=== PATIENT | female | born 1940 | race Caucasian/White ===

== ENCOUNTER 2019-08-27 09:56 | Outpatient (CLI) | payer MEDICARE ==
--- NOTE | 2019-08-27 11:17 | RAD ---
THORACIC SPINE SERIES FOUR VIEWS: HISTORY: Back and right leg pain. FINDINGS: The vertebral bodies are normal in height. There are degenerative changes along the course of the spi ne with mild disk narrowing at L1-L2 and at L2-L3, more pronounced disk narrowing at L3-L4 and more s evere narrowing at the L4-L5 and L5-S1 levels. Minimal spondylolisthesis of L4 on L5 is present. Vijay ed degenerative facet changes are present. Pedicles are intact. Postoperative changes which appear to be related to previous cholecystectomy. On the flexion and extension views there does not appear to be a significant change. IMPRESSION: Marked arthritic changes of the spine. POS: TPC
--- NOTE | 2019-08-27 11:49 | MRI ---
MRI LUMBAR SPINE PERFORMED WITHOUT CONTRAST ENHANCEMENT: Date: 08/27/19 HISTORY: Back and right leg pain. FINDINGS: The vertebral bodies are normal in height. There are generalized disc desiccation changes. There is a spondylolisthesis of L4 on L5 of approximately 6.0 mm. No significant periaortic adenopathy and the visualized portions of the kidneys appear unremarkable. T11-12: No significant canal or foraminal stenosis. T12-L1: No canal or foraminal stenosis. L1-2: A disc bulge with facet and ligamentous hypertrophic changes are seen. No canal stenosis. Ther e is some mild bilateral foraminal narrowing. L2-3: Degenerative facet changes with some borderline canal narrowing. No foraminal stenosis. L3-4: Moderate disc bulge is seen at this level with a mild to moderate degree of canal stenosis wit h facet and ligamentous hypertrophic changes and moderate bilateral foraminal narrowing L4-5: Canal shows a mild to moderate degree of narrowing with degenerative facet changes, disc bulge , and spondylolisthesis. There is some mild bilateral foraminal narrowing. L5-S1: No central canal stenosis. Degenerative facet changes are present with moderate bilateral for aminal narrowing, worse on the left. IMPRESSION: Areas of canal and foraminal stenosis as discussed above. POS: TPC
== END 2019-08-27 09:57 | disposition home or self-care (01) ==
LOC: TBSIIMAG 09:56
PROVIDERS: ATTEND Physician Assistant Surgical
DX: M54.16 Radiculopathy, lumbar region (principal); M54.5 Low back pain; R20.2 Paresthesia of skin; M46.94 Unspecified inflammatory spondylopathy, thoracic region; M48.061 Spinal stenosis, lumbar region without neurogenic claudication; M48.07 Spinal stenosis, lumbosacral region
CPT/HCPCS: 72110; 72148

== ENCOUNTER 2019-11-07 13:28 | Outpatient (CLI) | payer MEDICARE ==
--- NOTE | 2019-11-07 15:02 | MRI ---
MRI CERVICAL SPINE WITHOUT IV CONTRAST: HISTORY: Neck pain and bilateral shoulder blade pain. Symptoms have been present for a few months. COMPARISON: None. FINDINGS: There is mild volume loss involving the limited visualized cerebellum. The craniocervical junction is within normal limits. There is mild nonspecific heterogeneity of the bone marrow with degenerative changes noted in the cer vical spine. C2-C3: No significant disk bulge or disk herniation is seen. Mild facet degenerative changes are note d. Minimal left neural foraminal narrowing is present. The right neural foramen and central canal are patent. C3-C4: There are prominent facet hypertrophic changes on the left. This results in mild left sided ne ural foraminal narrowing. The central spinal canal and right neural foramen are patent. There is no s ignificant disk bulge or disk herniation. C4-C5: There is loss of intervertebral disk height. There is a broad-based disk osteophyte complex an d suggestion of uncinate process hypertrophy. There is mild right sided neural foraminal narrowing. T he left neural foramen is patent. There is slight effacement of the ventral subarachnoid space. C5-C6: There is loss of intervertebral disk height. There is a broad-based disk osteophyte complex, g reater in the right paracentral location. This results in moderate to severe bilateral neural foramin al narrowing with mild central canal narrowing. There is encroachment at the anterior aspect of the s ezio cord at this level. C6-C7: There is loss of intervertebral disk height. There is a broad-based disk osteophyte complex pr esent with mild facet degenerative changes. Findings result in moderate to severe bilateral neural fo raminal narrowing, greater on the left. There is mild central canal narrowing. C7-T1: There is a mild disk osteophyte complex present. Mild facet degenerative changes are noted. Th ere is mild right and moderate left sided neural foraminal narrowing. The central spinal canal at thi s level is patent. IMPRESSION: Multilevel degenerative changes in the cervical spine, as described above. The findings are greatest at the C5-C6 and C6-C7 levels. POS: C
--- NOTE | 2019-11-07 15:58 | RAD ---
XR Cervical Spine 4 View Min History: Cervicalgia. Scapulocalgia Comparison: Cervical spine MRI same day Findings: Moderate to severe degenerative disc space disease from C5-T1. 2 mm C5 over C6 degenerative retrolisthesis. Moderate facet arthrosis bilaterally. Moderate vascular calcifications right carotid bulb and proximal internal carotid artery. The ribs ar e intact. Lung apices are clear. Impression: Advanced degenerative changes.
== END 2019-11-07 13:29 | disposition home or self-care (01) ==
LOC: TBSIIMAG 13:28
PROVIDERS: ATTEND Surgery
DX: M89.8X1 Other specified disorders of bone, shoulder (principal); M47.812 Spondylosis without myelopathy or radiculopathy, cervical region; M47.813 Spondylosis without myelopathy or radiculopathy, cervicothoracic region
CPT/HCPCS: 72050; 72141

== ENCOUNTER 2019-11-07 15:22 | Outpatient (CLI) | payer MEDICARE | END 2019-11-07 15:23 | disposition home or self-care (01) | LOC: SCSRAD 15:22 | PROVIDERS: ATTEND Surgery | DX: M47.22 Other spondylosis with radiculopathy, cervical region (principal); M89.8X1 Other specified disorders of bone, shoulder; M48.061 Spinal stenosis, lumbar region without neurogenic claudication; M54.5 Low back pain | CPT/HCPCS: 72040; 72050; 72141 ==

== ENCOUNTER 2021-03-24 12:42 | Outpatient (CLI) | payer MEDICARE ==
[2021-03-24 15:16] LABS: Anion Gap 15 mmol/L (10-20); BUN (Urea Nitrogen) 17 mg/dL (9.8-20.1); Calc. Creatinine Clearance 0 mL/min (70-130); Calcium 10.3 mg/dL (7.8-10.44); Carbon Dioxide 27 mmol/L (23-31); Chloride 101 mmol/L (98-107); Glucose 82 mg/dL (83-110); Potassium 4.6 mmol/L (3.5-5.1); Sodium 138 mmol/L (136-145)
[2021-03-25 01:51] LABS: SARS-CoV-2 PCR by NAA Not Detected (NotDetected)
== END 2021-03-24 12:43 | disposition home or self-care (01) ==
LOC: LABBT 12:42
PROVIDERS: ATTEND Student in an Organized Health Care Education/Training Program
DX: Z01.818 Encounter for other preprocedural examination (principal); R09.81 Nasal congestion; J30.0 Vasomotor rhinitis; R09.82 Postnasal drip; J34.2 Deviated nasal septum; J34.89 Other specified disorders of nose and nasal sinuses; K58.9 Irritable bowel syndrome, unspecified; Z20.822 Contact with and (suspected) exposure to COVID-19
CPT/HCPCS: 80048; 85014; 85018; 93005; U0003; U0005; 87635; 93010

== ENCOUNTER 2021-03-29 09:14 | Day surgery (SDC) | payer MEDICARE ==
[2021-03-28 14:56] VITALS: BMI 20.7
[2021-03-29] MEDS ORDERED: AFRIN NASAL MIST 15 ML BOT ONE ×2 (11:06→11:15)
[2021-03-29] MEDS ORDERED: Lidocaine 1% w/Epinephrine 1:100K 20 ML VIAL ONE (11:15)
[2021-03-29] MEDS ORDERED: Bacitracin Zinc Ointment 30 gm TUBE ONE (11:15)
[2021-03-29] MEDS ORDERED: Fentanyl 100 MCG/2 ML VIAL ONE (11:18)
[2021-03-29] MEDS ORDERED: SUGAMMADEX SODIUM 200 MG/2 ML VIAL ONE (11:19)
[2021-03-29] MEDS ORDERED: Famotidine/PF 20 mg/2ml Vial ONE (11:19)
[2021-03-29] MEDS ORDERED: Lidocaine 1% PF 5 ML VIAL ONE (11:35)
[2021-03-29] MEDS ORDERED: PHENYLEPHRINE-NS 100 MCG/ML 10 ML SYRINGE ONE (11:35)
[2021-03-29] MEDS ORDERED: Dexamethasone 20 MG/5 ML VIAL ONE (11:35)
[2021-03-29] MEDS ORDERED: Glycopyrrolate 0.2 MG/ML 5 ML SYRINGE ONE (11:35)
[2021-03-29] MEDS ORDERED: Ondansetron PF 4 MG/2 ML Vial ONE (11:35)
[2021-03-29] MEDS ORDERED: Rocuronium Bromide 10 MG/ML (10ML VIAL) ONE (11:35)
[2021-03-29] MEDS ORDERED: PROPOFOL 200 MG/20 ML VIAL ONE (11:35)
[2021-03-29] MEDS ORDERED: HYDROcodone/Acetaminophen 5/325 mg Tablet ONE (14:28)
[2021-03-29] MEDS ORDERED: hydrALAZINE 20 MG/ML VIAL ONE (15:16)
== END 2021-03-29 15:58 | disposition home or self-care (01) ==
LOC: SDC 09:14
PROVIDERS: ATTEND Student in an Organized Health Care Education/Training Program
PROC: 09BM8ZZ Excision of Nasal Septum, Via Natural or Artificial Opening Endoscopic (ICD-10-PCS; principal; 2021-03-29)
PROC: 09BL8ZZ Excision of Nasal Turbinate, Via Natural or Artificial Opening Endoscopic (ICD-10-PCS; 2021-03-29)
PROC: 09QM8ZZ Repair Nasal Septum, Via Natural or Artificial Opening Endoscopic (ICD-10-PCS; 2021-03-29)
DX: J34.89 Other specified disorders of nose and nasal sinuses (principal); J34.2 Deviated nasal septum; J34.3 Hypertrophy of nasal turbinates; K58.9 Irritable bowel syndrome, unspecified; Z79.51 Long term (current) use of inhaled steroids; Z79.899 Other long term (current) drug therapy; Z88.6 Allergy status to analgesic agent; Z88.8 Allergy status to other drugs, medicaments and biological substances; Z91.018 Allergy to other foods
CPT/HCPCS: 30140; 30468; 30520; Q4166; C1889; J0360; J1100; J2405; J2704; J3010; S0028

== ENCOUNTER 2021-08-09 12:31 | Outpatient (CLI) | payer MEDICARE | END 2021-08-09 12:32 | disposition home or self-care (01) | LOC: TBSIIMAG 12:31 | PROVIDERS: ATTEND Surgery | DX: M47.26 Other spondylosis with radiculopathy, lumbar region (principal); S32.011A Stable burst fracture of first lumbar vertebra, initial encounter for closed fracture | CPT/HCPCS: 72148 ==

== ENCOUNTER 2021-08-15 10:42 | Outpatient (CLI) | payer MEDICARE | END 2021-08-15 10:43 | disposition home or self-care (01) | LOC: TBSIIMAG 10:42 | PROVIDERS: ATTEND Surgery | DX: S32.019A Unspecified fracture of first lumbar vertebra, initial encounter for closed fracture (principal) | CPT/HCPCS: 72100 ==

== ENCOUNTER 2021-09-20 10:58 | Outpatient (CLI) | payer MEDICARE | END 2021-09-20 10:59 | disposition home or self-care (01) | LOC: TBSIIMAG 10:58 | PROVIDERS: ATTEND Surgery | DX: S22.008D Other fracture of unspecified thoracic vertebra, subsequent encounter for fracture with routine healing (principal) | CPT/HCPCS: 72100 ==

== ENCOUNTER 2022-05-16 12:30 | Outpatient (CLI) | payer MEDICARE | END 2022-05-16 12:31 | disposition home or self-care (01) | LOC: SCSMRI 12:30 | PROVIDERS: ATTEND Anesthesiology Pain Medicine | DX: M47.812 Spondylosis without myelopathy or radiculopathy, cervical region (principal) | CPT/HCPCS: 72146 ==

== ENCOUNTER 2022-05-31 10:49 | Outpatient (CLI) | payer MEDICARE | END 2022-05-31 10:50 | disposition home or self-care (01) | LOC: TBSIIMAG 10:49 | PROVIDERS: ATTEND Anesthesiology Pain Medicine | DX: M48.02 Spinal stenosis, cervical region (principal); M50.31 Other cervical disc degeneration, high cervical region; M47.812 Spondylosis without myelopathy or radiculopathy, cervical region | CPT/HCPCS: 72141 ==

== ENCOUNTER 2022-09-07 13:42 | Emergency (ER) | payer MEDICARE ==
[~2022-09-07 13:42] MED LIST: Iopamidol-370 76% 500 ML 1 ML ONE
[2022-09-07 14:31] LABS: #Eosinphils 0.1 thou/uL (0.0-0.7); #Lymphocytes 1.5 thou/uL (1.20-3.40); #Monocytes 0.3 thou/uL (0.11-0.59); #Neutrophils 4.9 thou/uL (1.40-6.50); %Basophils 0.4 % (0.0-1.0); %Eosinophils 1.3 % (0.0-10.0); %Lymphocytes 21.8 % (21.0-51.0); %Monocytes 4.7 % (0.0-10.0); %Neutrophils 71.9 % (42.0-75.0); Hemoglobin 14.2 g/dL (12.0-16.0); Mean Corpuscular HGB CONC 32.6 g/dL (32.0-36.0); Mean Corpuscular Hemoglobin 30.4 pg (27.0-31.0); Mean Corpuscular Volume 93.2 fL (78.0-98.0); Mean Platelet Volume 7.4 fL (7.4-10.4); Platelet Count 278 thou/uL (130-400); RBC Distribution Width 13.1 % (11.5-14.5); Red Blood Cell (RBC) Count 4.67 mill/uL (4.20-5.40); White Blood Cell (WBC) Count 6.9 thou/uL (4.8-10.8)
[2022-09-07 14:39] LABS: ALT (SGPT) 11 U/L (8-55); AST (SGOT) 22 U/L (5-34); Albumin 4.1 g/dL (3.4-4.8); Alkaline Phosphatase 90 U/L (40-110); Anion Gap 13 mmol/L (10-20); BUN (Urea Nitrogen) 14 mg/dL (9.8-20.1); Bilirubin, Total 0.5 mg/dL (0.2-1.2); Calc. Creatinine Clearance 0 mL/min (70-130); Calcium 9.6 mg/dL (7.8-10.44); Carbon Dioxide 28 mmol/L (23-31); Chloride 100 mmol/L (98-107); Estimated GFR 82; Globulin 3.6 g/dL (2.4-3.5); Glucose 97 mg/dL (83-110); Lipase 71 U/L (8-78); Potassium 3.9 mmol/L (3.5-5.1); Protein, Total 7.7 g/dL (5.8-8.1); Sodium 137 mmol/L (136-145)
[2022-09-07 16:23] LABS: Bilirubin Negative (Negative); Blood, Urine Negative (Negative); Clarity Clear (Clear); Glucose, Urine (Dipstick) Normal (Negative); Ketone, Urine 10 mg/dL (Negative); Leukocyte Negative Leu/uL (Negative); Nitrite Negative (Negative); Protein, Urine (Dipstick) Negative (Neg-Trace); Urobilinogen Normal mg/dL (Less than 2)
[2022-09-07] MEDS ORDERED: Dicyclomine 20 MG/2 ML VIAL ONE (17:11)
[2022-09-07] MEDS ORDERED: Fentanyl 100 MCG/2 ML VIAL ONE (17:12)
== END 2022-09-07 18:52 | disposition home or self-care (01) ==
LOC: ERS 13:42
DX: K52.9 Noninfective gastroenteritis and colitis, unspecified (principal); J18.9 Pneumonia, unspecified organism; Z79.899 Other long term (current) drug therapy; M54.12 Radiculopathy, cervical region
CPT/HCPCS: 36415; 62321; 74177; 80053; 81003; 83690; 84484; 85025; 85652; 93005; 96372; 96374; J1040; J3010; Q9967

== ENCOUNTER 2022-10-09 20:47 | Inpatient (IN) | payer MEDICARE ==
[2022-10-09] MEDS ORDERED: Nitroglycerin 2% Ointment 1 INCH/1 GM Packet ONE (21:09)
[2022-10-09] MEDS ORDERED: Morphine 4 MG/ML VIAL ONE (21:09)
[2022-10-09 21:26] LABS: #Basophils 0.1 thou/uL (0.0-0.2); #Eosinphils 0.1 thou/uL (0.0-0.7); #Lymphocytes 2.4 thou/uL (1.20-3.40); #Monocytes 0.4 thou/uL (0.11-0.59); #Neutrophils 2.4 thou/uL (1.40-6.50); %Eosinophils 2.5 % (0.0-10.0); %Lymphocytes 44.1 % (21.0-51.0); %Monocytes 7.7 % (0.0-10.0); %Neutrophils 44.8 % (42.0-75.0); Hemoglobin 11.9 g/dL (12.0-16.0); Mean Corpuscular HGB CONC 33.2 g/dL (32.0-36.0); Mean Corpuscular Volume 93.3 fl (78.0-98.0); Mean Platelet Volume 7.4 fL (7.4-10.4); Platelet Count 257 10x3/uL (130-400); Red Blood Cell (RBC) Count 3.85 mill/uL (4.20-5.40); White Blood Cell (WBC) Count 5.3 10x3/uL (4.8-10.8)
[2022-10-09 21:47] LABS: Carbon Dioxide 24 mmol/L (23-31); Chloride 101 mmol/L (98-107); Potassium 3.9 mmol/L (3.5-5.1); Sodium 133 mmol/L (136-145)
[2022-10-09 21:48] LABS: ALT (SGPT) 11 U/L (8-55); AST (SGOT) 21 U/L (5-34); Albumin 3.8 g/dL (3.4-4.8); Alkaline Phosphatase 77 U/L (40-110); Anion Gap 12 mmol/L (10-20); BUN (Urea Nitrogen) 11 mg/dL (9.8-20.1); Bilirubin, Total 0.3 mg/dL (0.2-1.2); Calc. Creatinine Clearance 0 mL/min (70-130); Calcium 8.8 mg/dL (7.8-10.44); Estimated GFR 80; Globulin 2.8 g/dL (2.4-3.5); Glucose 89 mg/dL (83-110); Protein, Total 6.6 g/dL (5.8-8.1)
[2022-10-09] MEDS ORDERED: cefTRIAXone\\ROCEPHIN 1 GM VIAL ONE (22:21)
[2022-10-09] MEDS ORDERED: traMADol HCl 50 MG TAB PO PRN (23:32)
[2022-10-09] MEDS ORDERED: Ondansetron PF 4 MG/2 ML Vial IVP PRN (23:32)
[2022-10-09] MEDS ORDERED: Acetaminophen 325 MG TAB PO PRN (23:32)
[2022-10-09] MEDS ORDERED: Ondansetron ODT 4 MG TAB PO PRN (23:32)
[2022-10-09] MEDS ORDERED: Azithromycin 500 MG VIAL ONE (23:40)
[2022-10-09 23:57] LABS: Bacteria/HPF 1+ HPF (None Seen); Bilirubin Negative (Negative); Blood, Urine Negative (Negative); Clarity Clear (Clear); Glucose, Urine (Dipstick) Normal (Negative); Ketone, Urine Negative (Negative); Leukocyte 75 Leu/uL (Negative); Nitrite 1+ (Negative); Protein, Urine (Dipstick) Negative (Neg-Trace); RBC/HPF 0-3 HPF (0-3); Specific Gravity, Urine 1.008 (1.002-1.036); Squamous Epithelial None Seen HPF (0-3); Urobilinogen Normal mg/dL (Less than 2); pH, Urine 6.5 (5.0-9.0)
[2022-10-10 00:40] VITALS: BMI 18.6
[2022-10-10] MEDS: HYDROcodone/Acetaminophen 7.5/325 mg Tablet PO PRN ×2 (01:19→08:23)
[2022-10-10 01:46] LABS: SARS-CoV-2 NAA Rapid Test Not Detected (NotDetected)
[2022-10-10] MEDS ORDERED: Promethazine HCl 12.5 MG in Sodium Chloride 0.9% 50 ML IVPB PRN (01:46)
[2022-10-10 06:13] LABS: #Eosinphils 0.1 thou/uL (0.0-0.7); #Lymphocytes 1.8 thou/uL (1.20-3.40); #Monocytes 0.7 thou/uL (0.11-0.59); #Neutrophils 2.9 thou/uL (1.40-6.50); %Basophils 0.8 % (0.0-1.0); %Eosinophils 2.3 % (0.0-10.0); %Lymphocytes 32.3 % (21.0-51.0); %Monocytes 11.7 % (0.0-10.0); Hemoglobin 12.1 g/dL (12.0-16.0); Mean Corpuscular HGB CONC 32.6 g/dL (32.0-36.0); Mean Corpuscular Hemoglobin 30.6 pg (27.0-31.0); Mean Corpuscular Volume 93.7 fl (78.0-98.0); Mean Platelet Volume 7.6 fL (7.4-10.4); Platelet Count 248 10x3/uL (130-400); RBC Distribution Width 13.1 % (11.5-14.5); Red Blood Cell (RBC) Count 3.95 mill/uL (4.20-5.40); White Blood Cell (WBC) Count 5.5 10x3/uL (4.8-10.8)
[2022-10-10 06:37] LABS: Anion Gap 9 mmol/L (10-20); BUN (Urea Nitrogen) 8 mg/dL (9.8-20.1); Calc. Creatinine Clearance 51 mL/min (70-130); Calcium 8.6 mg/dL (7.8-10.44); Carbon Dioxide 28 mmol/L (23-31); Chloride 104 mmol/L (98-107); Estimated GFR 82; Glucose 88 mg/dL (83-110); Potassium 4.1 mmol/L (3.5-5.1); Sodium 137 mmol/L (136-145)
[2022-10-10] MEDS: Dicyclomine 20 MG TAB PO SCH ×3 (08:23→20:02)
[2022-10-10] MEDS: Citalopram 10 MG TAB PO SCH (08:23)
[2022-10-10] MEDS: Lisinopril 20 MG TAB PO SCH (08:23)
[2022-10-10] MEDS ORDERED: FLU VACC QS2022-23(65YR UP)/PF 240 MCG/0.7 ML SYRINGE IM ONE (09:00)
[2022-10-10] MEDS: traMADol HCl 50 MG TAB PO PRN ×2 (13:56→20:02)
[2022-10-10] MEDS ORDERED: Polyethylene Glycol 3350 17 GM Packet PO SCH (19:15)
[2022-10-10] MEDS ORDERED: cefTRIAXone\\ROCEPHIN 1 GM in Sodium Chloride 0.9% 100 ML IVPB SCH (22:00)
[2022-10-10] MEDS ORDERED: Azithromycin 500 MG in Sodium Chloride 0.9% 250 ML 250 ML IVPB SCH (23:00)
[2022-10-11] MEDS: traMADol HCl 50 MG TAB PO PRN (01:34)
[2022-10-11] MEDS ORDERED: HYDROcodone/Acetaminophen 7.5/325 mg Tablet PO SCH (05:15)
[2022-10-11 06:01] LABS: #Eosinphils 0.1 thou/uL (0.0-0.7); #Lymphocytes 1.7 thou/uL (1.20-3.40); #Monocytes 0.5 thou/uL (0.11-0.59); #Neutrophils 4.5 thou/uL (1.40-6.50); %Basophils 0.1 % (0.0-1.0); %Eosinophils 1.1 % (0.0-10.0); %Monocytes 6.7 % (0.0-10.0); %Neutrophils 67.1 % (42.0-75.0); Hemoglobin 12.4 g/dL (12.0-16.0); Mean Corpuscular HGB CONC 32.9 g/dL (32.0-36.0); Mean Corpuscular Hemoglobin 30.4 pg (27.0-31.0); Mean Corpuscular Volume 92.4 fl (78.0-98.0); Mean Platelet Volume 7.4 fL (7.4-10.4); Platelet Count 272 10x3/uL (130-400); RBC Distribution Width 13.1 % (11.5-14.5); Red Blood Cell (RBC) Count 4.08 mill/uL (4.20-5.40); White Blood Cell (WBC) Count 6.7 10x3/uL (4.8-10.8)
[2022-10-11 06:26] LABS: Anion Gap 11 mmol/L (10-20); BUN (Urea Nitrogen) 6 mg/dL (9.8-20.1); Calc. Creatinine Clearance 53 mL/min (70-130); Calcium 8.5 mg/dL (7.8-10.44); Carbon Dioxide 25 mmol/L (23-31); Chloride 100 mmol/L (98-107); Estimated GFR 86; Glucose 93 mg/dL (83-110); Potassium 3.8 mmol/L (3.5-5.1); Sodium 132 mmol/L (136-145)
[2022-10-11] MEDS: Citalopram 10 MG TAB PO SCH (08:23)
[2022-10-11] MEDS: Lisinopril 20 MG TAB PO SCH (08:23)
[2022-10-11] MEDS: Dicyclomine 20 MG TAB PO SCH (08:23)
[2022-10-11 08:53] VITALS: BP 144/67; TEMP 97.4
[2022-10-14 14:37] LABS: QuantiFERON-TB Gold Plus Negative (Negative)
== END 2022-10-11 14:47 | disposition home or self-care (01) | DRG 178 ==
LOC: ERS 20:47 → T4-A 22:57 → OBSVTOIN 10-10 10:17 → T4-A 10-10 10:40
PROVIDERS: ADMIT Physician Assistant; ATTEND Internal Medicine
DX: A31.0 Pulmonary mycobacterial infection (principal); Z68.1 Body mass index [BMI] 19.9 or less, adult; J18.9 Pneumonia, unspecified organism; Z66 Do not resuscitate; K58.9 Irritable bowel syndrome, unspecified; I10 Essential (primary) hypertension; F41.9 Anxiety disorder, unspecified; Z88.2 Allergy status to sulfonamides; Z88.8 Allergy status to other drugs, medicaments and biological substances; Z79.899 Other long term (current) drug therapy; Z90.09 Acquired absence of other part of head and neck; Z90.49 Acquired absence of other specified parts of digestive tract; R63.4 Abnormal weight loss
CPT/HCPCS: 36415; 71045; 71250; 74177; 80048; 80053; 81003; 81015; 83605; 83880; 84484; 85025; 86480; 87040; 87116; 87206; 93005; J0456; J0696; J2270; J3490; J7050; Q9967

== ENCOUNTER 2022-12-22 12:36 | Outpatient (CLI) | payer MEDICARE | END 2022-12-22 12:37 | disposition home or self-care (01) | LOC: BICCT 12:36 | PROVIDERS: ATTEND Internal Medicine Critical Care Medicine | DX: A31.0 Pulmonary mycobacterial infection (principal); R91.8 Other nonspecific abnormal finding of lung field; J98.11 Atelectasis; J47.9 Bronchiectasis, uncomplicated | CPT/HCPCS: 71250 ==

== ENCOUNTER 2023-03-09 12:28 | Outpatient (CLI) | payer MEDICARE | END 2023-03-09 12:29 | disposition home or self-care (01) | LOC: TBSIIMAG 12:28 | PROVIDERS: ATTEND Nurse Practitioner Family | DX: M47.22 Other spondylosis with radiculopathy, cervical region (principal); M48.02 Spinal stenosis, cervical region | CPT/HCPCS: 72141 ==

== ENCOUNTER 2023-03-25 12:43 | Inpatient (IN) | payer MEDICARE ==
[2023-03-25 13:24] LABS: Hemoglobin 12.1 g/dL (12.0-16.0); Mean Corpuscular HGB CONC 33.8 g/dL (32.0-36.0); Mean Corpuscular Hemoglobin 30.8 pg (27.0-31.0); Mean Corpuscular Volume 91.3 fl (78.0-98.0); Mean Platelet Volume 7.2 fL (7.4-10.4); Platelet Count 311 10x3/uL (130-400); Red Blood Cell (RBC) Count 3.93 mill/uL (4.20-5.40); White Blood Cell (WBC) Count 7.3 10x3/uL (4.8-10.8)
[2023-03-25 13:40] LABS: Band 9 % (5-11); Lymphocytes 20 % (21-51); MDiff Complete? YES; Monocytes 5 % (0-10); Neutrophil 65 % (42-75); Platelet Morphology Comment Appears Adequate; Polychromasia SLIGHT = 2-3 cells (100X) (0-2/hpf); Reactive Lymphocytes 1 % (0-10)
[2023-03-25 13:42] LABS: ALT (SGPT) 25 U/L (8-55); AST (SGOT) 29 U/L (5-34); Albumin 3.3 g/dL (3.4-4.8); Alkaline Phosphatase 116 U/L (40-110); Anion Gap 16 mmol/L (10-20); BUN (Urea Nitrogen) 10 mg/dL (9.8-20.1); Bilirubin, Total 0.4 mg/dL (0.2-1.2); Calc. Creatinine Clearance 0 mL/min (70-130); Calcium 8.8 mg/dL (7.8-10.44); Carbon Dioxide 22 mmol/L (23-31); Chloride 96 mmol/L (98-107); Estimated GFR 89; Globulin 3.7 g/dL (2.4-3.5); Glucose 97 mg/dL (83-110); Potassium 3.3 mmol/L (3.5-5.1); Sodium 131 mmol/L (136-145)
[2023-03-25] MEDS ORDERED: Morphine 4 MG/ML VIAL ONE (13:46)
[2023-03-25 14:01] LABS: Troponin I Less than 0.010 ng/mL (< 0.028)
[2023-03-25] MEDS ORDERED: cefTRIAXone (ROCEPHIN) 2 GM VIAL ONE (14:01)
[2023-03-25 14:44] LABS: SARS-CoV-2 NAA Rapid Test Not Detected (NotDetected)
[2023-03-25] MEDS ORDERED: Azithromycin 500 MG VIAL ONE (15:43)
[2023-03-25 16:58] VITALS: BMI 17.2
[2023-03-25] MEDS ORDERED: Lisinopril 2.5 MG TAB PO SCH (18:15)
[2023-03-25] MEDS ORDERED: Electrolyte Replacement Protocol FS SCH (18:15)
[2023-03-25] MEDS ORDERED: Ipratropium/Albuterol 3 ML NEB NEB PRN (18:18)
[2023-03-25] MEDS ORDERED: Melatonin 3 MG TAB PO PRN (18:22)
[2023-03-25] MEDS ORDERED: Senokot S 8.6-50 MG TAB PO PRN (18:22)
[2023-03-25] MEDS ORDERED: Lisinopril 20 MG TAB PO SCH (18:45)
[2023-03-25] MEDS: HYDROcodone/Acetaminophen 5/325 mg Tablet PO PRN (20:28)
[2023-03-25] MEDS ORDERED: Magnesium 2 GM/50 ML(in water) 2 GM in Premix Bag 1 BAG IVPB SCH (22:00)
[2023-03-25] MEDS ORDERED: Potassium Chloride 20 MEQ TAB PO SCH (22:00)
[2023-03-26] MEDS: Benzonatate 100 MG CAP PO PRN ×2 (06:22→23:49)
[2023-03-26 06:28] LABS: #Eosinphils 0.1 thou/uL (0.0-0.7); #Monocytes 0.7 thou/uL (0.11-0.59); #Neutrophils 3.8 thou/uL (1.40-6.50); %Basophils 0.3 % (0.0-1.0); %Eosinophils 1.5 % (0.0-10.0); %Lymphocytes 17.6 % (21.0-51.0); %Monocytes 11.8 % (0.0-10.0); %Neutrophils 68.7 % (42.0-75.0); Hemoglobin 10.4 g/dL (12.0-16.0); Mean Corpuscular HGB CONC 32.8 g/dL (32.0-36.0); Mean Corpuscular Hemoglobin 30.3 pg (27.0-31.0); Mean Corpuscular Volume 92.4 fl (78.0-98.0); Mean Platelet Volume 7.2 fL (7.4-10.4); Platelet Count 291 10x3/uL (130-400); Red Blood Cell (RBC) Count 3.44 mill/uL (4.20-5.40); White Blood Cell (WBC) Count 5.5 10x3/uL (4.8-10.8)
[2023-03-26 06:46] LABS: Anion Gap 12 mmol/L (10-20); BUN (Urea Nitrogen) 11 mg/dL (9.8-20.1); Calc. Creatinine Clearance 55 mL/min (70-130); Calcium 8.1 mg/dL (7.8-10.44); Carbon Dioxide 25 mmol/L (23-31); Chloride 98 mmol/L (98-107); Estimated GFR 90; Glucose 89 mg/dL (83-110); Magnesium 2.8 mg/dL (1.6-2.6); Potassium 3.7 mmol/L (3.5-5.1); Sodium 131 mmol/L (136-145)
[2023-03-26] MEDS: Lisinopril 20 MG TAB PO SCH (07:56)
[2023-03-26] MEDS ORDERED: Lisinopril 20 MG TAB PO SCH (09:00)
[2023-03-26] MEDS: Citalopram 20 MG TAB PO SCH (10:20)
[2023-03-26] MEDS: HYDROcodone/Acetaminophen 5/325 mg Tablet PO PRN ×2 (10:24→19:36)
[2023-03-26] MEDS: cefTRIAXone\\ROCEPHIN 1 GM in Sodium Chloride 0.9% 100 ML IVPB SCH (13:33)
[2023-03-26] MEDS: Azithromycin 500 MG in Sodium Chloride 0.9% 250 ML 250 ML IVPB SCH (15:20)
[2023-03-26] MEDS: traMADol HCl 50 MG TAB PO PRN (22:16)
[2023-03-26] MEDS: Melatonin 3 MG TAB PO SCH (22:17)
[2023-03-27] MEDS: GUAIFENESIN SF SOLN 200 MG/10 ML UDCUP PO PRN ×2 (00:57→18:46)
[2023-03-27] MEDS: HYDROcodone/Acetaminophen 5/325 mg Tablet PO PRN ×3 (05:33→23:30)
[2023-03-27] MEDS: Benzonatate 100 MG CAP PO PRN (05:34)
[2023-03-27 06:26] LABS: #Eosinphils 0.1 thou/uL (0.0-0.7); #Monocytes 0.6 thou/uL (0.11-0.59); #Neutrophils 4.6 thou/uL (1.40-6.50); %Basophils 0.5 % (0.0-1.0); %Eosinophils 1.1 % (0.0-10.0); %Lymphocytes 17.8 % (21.0-51.0); %Monocytes 8.6 % (0.0-10.0); %Neutrophils 69.7 % (42.0-75.0); Hemoglobin 10.3 g/dL (12.0-16.0); Mean Corpuscular Hemoglobin 28.8 pg (27.0-31.0); Mean Corpuscular Volume 87.2 fl (78.0-98.0); Mean Platelet Volume 9.4 fL (7.4-10.4); Platelet Count 366 10x3/uL (130-400); RBC Distribution Width 15.7 % (11.5-14.5); Red Blood Cell (RBC) Count 3.58 mill/uL (4.20-5.40); White Blood Cell (WBC) Count 6.5 10x3/uL (4.8-10.8)
[2023-03-27 06:49] LABS: ALT (SGPT) 25 U/L (8-55); AST (SGOT) 30 U/L (5-34); Albumin 2.9 g/dL (3.4-4.8); Alkaline Phosphatase 100 U/L (40-110); Anion Gap 12 mmol/L (10-20); BUN (Urea Nitrogen) 7 mg/dL (9.8-20.1); Bilirubin, Total 0.3 mg/dL (0.2-1.2); Calc. Creatinine Clearance 59 mL/min (70-130); Calcium 7.9 mg/dL (7.8-10.44); Carbon Dioxide 25 mmol/L (23-31); Chloride 98 mmol/L (98-107); Estimated GFR 91; Globulin 3.2 g/dL (2.4-3.5); Glucose 91 mg/dL (83-110); Potassium 3.4 mmol/L (3.5-5.1); Protein, Total 6.1 g/dL (5.8-8.1); Sodium 132 mmol/L (136-145)
[2023-03-27] MEDS ORDERED: Potassium Chloride 20 MEQ TAB PO SCH (08:00)
[2023-03-27] MEDS: Lisinopril 20 MG TAB PO SCH (09:43)
[2023-03-27] MEDS: Citalopram 20 MG TAB PO SCH (09:44)
[2023-03-27] MEDS: traMADol HCl 50 MG TAB PO PRN (10:47)
[2023-03-27] MEDS: cefTRIAXone\\ROCEPHIN 1 GM in Sodium Chloride 0.9% 100 ML IVPB SCH (14:03)
[2023-03-27] MEDS: Azithromycin 500 MG in Sodium Chloride 0.9% 250 ML 250 ML IVPB SCH (16:45)
[2023-03-28] MEDS: Melatonin 3 MG TAB PO SCH (02:38)
[2023-03-28] MEDS: traMADol HCl 50 MG TAB PO PRN (08:49)
[2023-03-28] MEDS: Citalopram 20 MG TAB PO SCH (08:51)
[2023-03-28] MEDS: GUAIFENESIN SF SOLN 200 MG/10 ML UDCUP PO PRN (08:54)
[2023-03-28] MEDS ORDERED: Losartan 25 MG TAB PO SCH (09:00)
[2023-03-28] MEDS: HYDROcodone/Acetaminophen 5/325 mg Tablet PO PRN ×2 (09:46→17:47)
[2023-03-28] MEDS ORDERED: Loperamide HCl 2 MG CAP PO PRN (11:47)
[2023-03-28] MEDS ORDERED: chlordiazePOXIDE/Clidinium Bromide Capsule PO SCH ×2 (12:00→17:00)
[2023-03-28] MEDS: Azithromycin 500 MG in Sodium Chloride 0.9% 250 ML 250 ML IVPB SCH (14:05)
[2023-03-28] MEDS: cefTRIAXone\\ROCEPHIN 1 GM in Sodium Chloride 0.9% 100 ML IVPB SCH (14:05)
[2023-03-28 17:14] VITALS: BP 132/87; TEMP 97.5
[2023-03-29] MEDS ORDERED: chlordiazePOXIDE/Clidinium Bromide Capsule PO SCH (09:00)
[2023-03-29] MEDS ORDERED: diphenhydrAMINE 25 MG CAP PO SCH (09:00)
== END 2023-03-28 18:09 | DRG 194 ==
LOC: ERS 12:43 → T4-B 14:58
PROVIDERS: ADMIT Internal Medicine; ATTEND Internal Medicine
DX: J18.9 Pneumonia, unspecified organism (principal); E87.1 Hypo-osmolality and hyponatremia; Z68.1 Body mass index [BMI] 19.9 or less, adult; A31.0 Pulmonary mycobacterial infection; Z66 Do not resuscitate; Z20.822 Contact with and (suspected) exposure to COVID-19; J40 Bronchitis, not specified as acute or chronic; G89.29 Other chronic pain; M54.9 Dorsalgia, unspecified; I10 Essential (primary) hypertension; E86.0 Dehydration; E87.6 Hypokalemia; F32.A Depression, unspecified; F41.9 Anxiety disorder, unspecified; R29.6 Repeated falls; R63.6 Underweight; Z91.81 History of falling; Z88.1 Allergy status to other antibiotic agents; Z88.2 Allergy status to sulfonamides; Z88.8 Allergy status to other drugs, medicaments and biological substances; Z79.899 Other long term (current) drug therapy; Z90.49 Acquired absence of other specified parts of digestive tract; Z90.89 Acquired absence of other organs; Z90.710 Acquired absence of both cervix and uterus; Z98.51 Tubal ligation status; Z98.42 Cataract extraction status, left eye; Z98.41 Cataract extraction status, right eye
CPT/HCPCS: 36415; 71045; 80048; 80053; 83605; 83735; 84484; 85025; 87040; 87070; 87116; 87205; 87206; 93005; 96365; 96367; 96375; J0456; J0696; J2270; J3475; J3490; J7050

== ENCOUNTER 2023-03-31 15:07 | Emergency (ER) | payer MEDICARE ==
[2023-03-31 16:06] LABS: #Basophils 0.1 thou/uL (0.0-0.2); #Monocytes 0.4 thou/uL (0.11-0.59); #Neutrophils 5.9 thou/uL (1.40-6.50); %Basophils 0.6 % (0.0-1.0); %Eosinophils 0.5 % (0.0-10.0); %Lymphocytes 18.5 % (21.0-51.0); %Monocytes 4.9 % (0.0-10.0); %Neutrophils 72.7 % (42.0-75.0); Mean Corpuscular HGB CONC 31.3 g/dL (32.0-36.0); Mean Corpuscular Hemoglobin 28.2 pg (27.0-31.0); Mean Platelet Volume 9.7 fL (7.4-10.4); Platelet Count 543 10x3/uL (130-400); RBC Distribution Width 16.4 % (11.5-14.5); White Blood Cell (WBC) Count 8.1 10x3/uL (4.8-10.8)
[2023-03-31] MEDS ORDERED: Lidocaine 1% PF 5 ML VIAL ONE (16:17)
[2023-03-31 16:31] LABS: Acetaminophen Less than 10.0 mcg/mL (10.0-30.0); Alcohol Less than 10 mg/dL (Less than 10); CK (CPK) 53 U/L (29-168); Salicylate Less than 8.0 mg/dL (15.0-30.0)
[2023-03-31 16:32] LABS: ALT (SGPT) 33 U/L (8-55); AST (SGOT) 43 U/L (5-34); Albumin 3.4 g/dL (3.4-4.8); Alkaline Phosphatase 94 U/L (40-110); Anion Gap 15 mmol/L (10-20); BUN (Urea Nitrogen) 9 mg/dL (9.8-20.1); Bilirubin, Total 0.3 mg/dL (0.2-1.2); Calc. Creatinine Clearance 0 mL/min (70-130); Calcium 9.9 mg/dL (7.8-10.44); Carbon Dioxide 27 mmol/L (23-31); Chloride 99 mmol/L (98-107); Estimated GFR 80; Globulin 3.8 g/dL (2.4-3.5); Glucose 110 mg/dL (83-110); Protein, Total 7.2 g/dL (5.8-8.1); Sodium 137 mmol/L (136-145)
[2023-03-31] MEDS ORDERED: Boostrix 0.5 ML (Tdap) VIAL (>/=7 yrs of age) ONE (17:43)
[2023-03-31] MEDS ORDERED: Acetaminophen 500 MG TAB ONE (17:43)
[2023-03-31] MEDS ORDERED: HYDROcodone/Acetaminophen 7.5/325 mg Tablet ONE (18:00)
[2023-03-31] MEDS ORDERED: chlordiazePOXIDE/Clidinium Bromide Capsule PO SCH (19:30)
[2023-03-31] MEDS ORDERED: diphenhydrAMINE 25 MG CAP ONE ×2 (20:33→21:36)
== END 2023-04-01 00:06 ==
LOC: ERS 15:07
DX: S61.512A Laceration without foreign body of left wrist, initial encounter (principal); S61.511A Laceration without foreign body of right wrist, initial encounter; T14.91XA Suicide attempt, initial encounter; W26.9XXA Contact with unspecified sharp object(s), initial encounter; Z23 Encounter for immunization
CPT/HCPCS: 36415; 80053; 80307; 82550; 84443; 85025; 90471; 90715

== ENCOUNTER 2023-05-31 10:19 | Outpatient (CLI) | payer MEDICARE ==
[2023-05-31 12:29] LABS: Hemoglobin 12.9 g/dL (12.0-15.5); Mean Corpuscular HGB CONC 31.5 g/dL (32.0-36.0); Mean Corpuscular Hemoglobin 28.2 pg (27.0-33.0); Mean Corpuscular Volume 89.3 fl (81.6-98.3); Mean Platelet Volume 10.3 fl (7.4-10.4); Platelet Count 289 10x3/uL (150-450); RBC Distribution Width 15.3 % (11.5-14.5); Red Blood Cell (RBC) Count 4.58 10x6/uL (3.90-5.03); White Blood Cell (WBC) Count 4.1 10x3/uL (3.5-10.5)
[2023-05-31 12:44] LABS: PTT 25.5 sec (22.0-33.0); Prothrombin Time 10.4 sec (9.5-12.1)
[2023-05-31 12:54] LABS: Anion Gap 16 mmol/L (10-20); BUN (Urea Nitrogen) 9 mg/dL (9.8-20.1); Calc. Creatinine Clearance 0 mL/min (70-130); Calcium 8.9 mg/dL (7.8-10.44); Carbon Dioxide 25 mmol/L (23-31); Chloride 97 mmol/L (98-107); Estimated GFR 83; Glucose 79 mg/dL (83-110); Potassium 4.6 mmol/L (3.5-5.1); Sodium 133 mmol/L (136-145)
== END 2023-05-31 10:20 | disposition home or self-care (01) ==
LOC: LABBT 10:19
PROVIDERS: ATTEND Surgery
DX: Z01.818 Encounter for other preprocedural examination (principal); M47.12 Other spondylosis with myelopathy, cervical region; M48.02 Spinal stenosis, cervical region; M50.222 Other cervical disc displacement at C5-C6 level
CPT/HCPCS: 80048; 85027; 85610; 85730; 93005; 93010

== ENCOUNTER 2023-06-05 05:35 | Observation (INO) | payer MEDICARE ==
[2023-05-31 11:32] VITALS: BMI 17.9
[2023-06-05] MEDS ORDERED: Vancomycin 1 GM VIAL ONE (06:38)
[2023-06-05] MEDS ORDERED: Thrombin 5000 UNITS/5 ML VIAL ONE (06:38)
[2023-06-05] MEDS ORDERED: fentaNYL PF 100 MCG/2 ML SYRINGE ONE (06:45)
[2023-06-05] MEDS ORDERED: PHENYLEPHRINE-NS 100 MCG/ML 10 ML SYRINGE ONE (07:07)
[2023-06-05] MEDS ORDERED: Dexamethasone 20 MG/5 ML VIAL ONE (07:07)
[2023-06-05] MEDS ORDERED: PROPOFOL 200 MG/20 ML VIAL ONE (07:07)
[2023-06-05] MEDS ORDERED: Rocuronium Bromide 10 MG/ML (10ML VIAL) ONE (07:07)
[2023-06-05] MEDS ORDERED: Lidocaine 1% PF 5 ML VIAL ONE (07:07)
[2023-06-05] MEDS ORDERED: Promethazine HCl 25 MG/ML VIAL IM PRN (07:14)
[2023-06-05] MEDS ORDERED: Sodium Chloride 0.9% 100 ML ONE (07:19)
[2023-06-05] MEDS ORDERED: CEFAZOLIN 2 GM VIAL ONE (07:19)
[2023-06-05] MEDS ORDERED: SUGAMMADEX SODIUM 200 MG/2 ML VIAL ONE (09:31)
[2023-06-05] MEDS ORDERED: hydrALAZINE 20 MG/ML VIAL ONE (09:52)
[2023-06-05] MEDS ORDERED: Acetaminophen/Codeine 30-300mg Tablet PO PRN (09:58)
[2023-06-05] MEDS ORDERED: Promethazine HCl 25 MG/ML VIAL IVPB PRN (09:58)
[2023-06-05] MEDS ORDERED: traMADol HCl 50 MG TAB PO PRN (09:58)
[2023-06-05] MEDS ORDERED: Acetaminophen 325 MG TAB PO PRN (09:58)
[2023-06-05] MEDS ORDERED: tiZANidine HCl 4 MG TAB PO PRN (10:01)
[2023-06-05] MEDS ORDERED: Benzocaine/Menthol 1 LOZ LOZ PO PRN (10:06)
[2023-06-05] MEDS ORDERED: Phenol 118 ML BOT PO PRN (10:06)
[2023-06-05] MEDS ORDERED: hydrALAZINE 20 MG/ML VIAL SLOW IVP PRN (10:06)
[2023-06-05] MEDS ORDERED: Non-Formulary Item 1 EACH (Melatonin [Melatonin] 5 MG Tablet) PO PRN (10:07)
[2023-06-05] MEDS ORDERED: Non-Formulary Item 1 EACH (Eszopiclone [Eszopiclone] 3 MG Tablet) PO PRN (10:07)
[2023-06-05] MEDS ORDERED: Senokot S 8.6-50 MG TAB PO PRN ×2 (10:07→10:20)
[2023-06-05] MEDS ORDERED: Loperamide HCl 2 MG CAP PO PRN (10:07)
[2023-06-05] MEDS ORDERED: Mineral Oil ENEMA PR PRN (10:10)
[2023-06-05] MEDS ORDERED: Bisacodyl 10 MG SUPP PR PRN (10:10)
[2023-06-05] MEDS ORDERED: Polyethylene Glycol 3350 17 GM Packet PO PRN (10:10)
[2023-06-05] MEDS ORDERED: ESTRADIOL 10 MCG VAG SCH (10:15)
[2023-06-05] MEDS ORDERED: Estradiol [Vagifem] 10 MCG Tablet VAG SCH (10:15)
[2023-06-05] MEDS ORDERED: ESZOPICLONE 3 MG PO PRN (10:17)
[2023-06-05] MEDS ORDERED: Melatonin 3 MG TAB PO PRN (10:20)
[2023-06-05] MEDS ORDERED: fentaNYL 50 mcg/mL 1 mL Vial ONE ×4 (10:48→12:57)
[2023-06-05] MEDS: Morphine 2 MG/ML VIAL SLOW IVP PRN ×2 (14:40→15:50)
[2023-06-05] MEDS: Sodium Chloride 0.9% 1,000 ML IV SCH (14:44)
[2023-06-05] MEDS: CEFAZOLIN 2 GM in Sodium Chloride 0.9% 100 ML IVPB SCH ×2 (14:45→21:22)
[2023-06-05] MEDS ORDERED: chlordiazePOXIDE/Clidinium Bromide Capsule PO SCH ×2 (15:00→21:00)
[2023-06-05] MEDS: CeleCOXIB 100 MG CAP PO SCH (21:21)
[2023-06-05] MEDS: HYDROcodone/Acetaminophen 7.5/325 mg Tablet PO PRN (21:22)
[2023-06-06] MEDS: HYDROcodone/Acetaminophen 7.5/325 mg Tablet PO PRN ×3 (04:20→17:14)
[2023-06-06] MEDS: CEFAZOLIN 2 GM in Sodium Chloride 0.9% 100 ML IVPB SCH (05:29)
[2023-06-06] MEDS: Sodium Chloride 0.9% 1,000 ML IV SCH (05:29)
[2023-06-06] MEDS: CeleCOXIB 100 MG CAP PO SCH (08:23)
[2023-06-06] MEDS: Morphine 2 MG/ML VIAL SLOW IVP PRN (08:28)
[2023-06-06] MEDS ORDERED: LUTEIN 20 MG PO SCH ×2 (09:00)
[2023-06-06] MEDS ORDERED: Calcium Carbonate 600 MG + Vit D TAB PO SCH ×2 (09:00)
[2023-06-06] MEDS ORDERED: Citalopram 20 MG TAB PO SCH (09:00)
[2023-06-06] MEDS ORDERED: Lisinopril 20 MG TAB PO SCH (09:00)
[2023-06-06] MEDS ORDERED: Non-Formulary Item 1 EACH (Esomeprazole Magnesium [Nexium] 40 MG Cap) PO SCH (09:00)
[2023-06-06 11:21] LABS: #Monocytes 0.5 thou/uL (0.11-0.59); #Neutrophils 2.9 thou/uL (1.40-6.50); %Basophils 0.4 % (0.0-1.0); %Eosinophils 0.7 % (0.0-10.0); %Lymphocytes 24.2 % (21.0-51.0); %Monocytes 11.1 % (0.0-10.0); %Neutrophils 63.2 % (42.0-75.0); Hemoglobin 12.4 g/dL (12.0-16.0); Mean Corpuscular HGB CONC 31.2 g/dL (32.0-36.0); Mean Corpuscular Hemoglobin 28.6 pg (27.0-31.0); Mean Corpuscular Volume 91.7 fl (78.0-98.0); Mean Platelet Volume 9.9 fL (7.4-10.4); Platelet Count 222 10x3/uL (130-400); RBC Distribution Width 15.2 % (11.5-14.5); Red Blood Cell (RBC) Count 4.34 mill/uL (4.20-5.40); White Blood Cell (WBC) Count 4.5 10x3/uL (4.8-10.8)
[2023-06-06 12:07] LABS: Anion Gap 12 mmol/L (10-20); BUN (Urea Nitrogen) 7 mg/dL (9.8-20.1); Calc. Creatinine Clearance 52 mL/min (70-130); Calcium 8.5 mg/dL (7.8-10.44); Carbon Dioxide 26 mmol/L (23-31); Chloride 99 mmol/L (98-107); Estimated GFR 88; Glucose 96 mg/dL (83-110); Potassium 3.9 mmol/L (3.5-5.1); Sodium 133 mmol/L (136-145)
[2023-06-06 16:44] VITALS: TEMP 98
[2023-06-06] MEDS ORDERED: cloNIDine 0.2 MG TAB PO SCH (17:00)
[2023-06-06 17:50] VITALS: BP 138/69
== END 2023-06-06 17:57 ==
LOC: SDC 05:35 → T4-A 10:03
PROVIDERS: ADMIT Surgery; ATTEND Surgery
PROC: 0RG20A0 Fusion of 2 or more Cervical Vertebral Joints with Interbody Fusion Device, Anterior Approach, Anterior Column, Open Approach (ICD-10-PCS; principal; 2023-06-05)
PROC: 01N10ZZ Release Cervical Nerve, Open Approach (ICD-10-PCS; 2023-06-05)
DX: M48.02 Spinal stenosis, cervical region (principal); M54.12 Radiculopathy, cervical region; G99.2 Myelopathy in diseases classified elsewhere; Z88.8 Allergy status to other drugs, medicaments and biological substances; Z88.1 Allergy status to other antibiotic agents; Z88.6 Allergy status to analgesic agent; Z88.2 Allergy status to sulfonamides; Z87.891 Personal history of nicotine dependence; Z91.018 Allergy to other foods; Z79.899 Other long term (current) drug therapy
CPT/HCPCS: 20930; 20936; 22551; 22552; 22845; 22853 ×2; 80048; 85025; 97116; 97535; C1713 ×4; J0360; J3010; 36415; J1100; J2272; J2704; J3370; J3490; J7050

== ENCOUNTER 2023-07-09 09:29 | Outpatient (CLI) | payer MEDICARE | END 2023-07-09 09:30 | disposition home or self-care (01) | LOC: BICCT 09:29 | PROVIDERS: ATTEND Internal Medicine Critical Care Medicine | DX: A31.0 Pulmonary mycobacterial infection (principal); M47.22 Other spondylosis with radiculopathy, cervical region; M50.121 Cervical disc disorder at C4-C5 level with radiculopathy; M25.78 Osteophyte, vertebrae; M43.12 Spondylolisthesis, cervical region; M50.33 Other cervical disc degeneration, cervicothoracic region; Z98.1 Arthrodesis status | CPT/HCPCS: 71250; 72040 ==

== ENCOUNTER 2023-07-09 10:12 | Outpatient (CLI) | payer MEDICARE | END 2023-07-09 10:13 | disposition home or self-care (01) | LOC: RAD 10:12 | PROVIDERS: ATTEND Surgery | DX: M47.22 Other spondylosis with radiculopathy, cervical region (principal); M50.121 Cervical disc disorder at C4-C5 level with radiculopathy; M47.813 Spondylosis without myelopathy or radiculopathy, cervicothoracic region; M25.78 Osteophyte, vertebrae; M43.12 Spondylolisthesis, cervical region; M50.33 Other cervical disc degeneration, cervicothoracic region; Z98.1 Arthrodesis status | CPT/HCPCS: 72040 ==

== ENCOUNTER 2024-04-17 08:47 | Outpatient (CLI) | payer MEDICARE | END 2024-04-17 08:48 | disposition home or self-care (01) | LOC: CT 08:47 | PROVIDERS: ATTEND Internal Medicine Critical Care Medicine | DX: A31.0 Pulmonary mycobacterial infection (principal); J47.9 Bronchiectasis, uncomplicated; I25.10 Atherosclerotic heart disease of native coronary artery without angina pectoris | CPT/HCPCS: 71250 ==